=== PATIENT | female | born 1945 | race Caucasian/White ===

== ENCOUNTER 2017-12-12 10:09 | Emergency (ER) | payer MEDICARE, OTHER ==
[~2017-12-12] VITALS: Ht 149.9 cm; Wt 39.4 kg
[~2017-12-12 10:09] MED LIST: ACET80TA PO; AMLO-511 PO; ASPI81 PO; ATOR20TA86 PO; DONE10TA8 PO; ESCI10TA PO; LABE100 PO; MEMA14CA PO; SITA1TAB2 PO; SOLI5 PO
[2017-12-12] MEDS ORDERED: MULT-248 PO (10:29)
[2017-12-12] MEDS ORDERED: LOSA25TA16 PO (10:29)
[2017-12-12] MEDS ORDERED: ASPI81 PO (10:29)
[2017-12-12] MEDS ORDERED: AMLO2.5T3 PO (10:29)
[2017-12-12] MEDS ORDERED: DSS100 PO (10:29)
[2017-12-12] MEDS ORDERED: OXYB5XL PO (10:29)
[2017-12-12 12:01] LABS: BASOPHILS % (AUTO) 0.8 % (0.0-2.0); EOSINOPHILS % (AUTO) 9.5 % (1.0-6.0); HEMATOCRIT 32.4 % (36-46); LYMPHOCYTES # (AUTO) 1.3 K/uL (1.0-4.8); LYMPHOCYTES % (AUTO) 18.8 % (22.0-44.0); MEAN CORPUSCULAR HEMOGLOBIN 29.7 pg (26.0-34.0); MEAN CORPUSCULAR HGB CONC 33.8 G/dL (31.0-37.0); MEAN CORPUSCULAR VOLUME 88 fL (80-100); MONOCYTES # (AUTO) 0.4 K/uL (0.1-1.0); MONOCYTES % (AUTO) 6.3 % (2.0-9.0); NEUTROPHILS # (AUTO) 4.5 K/uL (1.8-7.7); NEUTROPHILS % (AUTO) 64.6 % (40.0-70.0); PLATELET COUNT (AUTO) 327 K/uL (150-450); RED CELL DISTRIBUTION WIDTH 14.3 % (11.5-14.5)
[2017-12-12 12:20] LABS: APPEARANCE,URINE TURBID (CLEAR); BILIRUBIN,URINE NEGATIVE (NEGATIVE); GLUCOSE, URINE (UA) NEGATIVE (NEGATIVE); KETONES,URINE NEGATIVE (NEGATIVE); LEUKOCYTE ESTERASE ,URINE LARGE (NEGATIVE); NITRATE,URINE NEGATIVE (NEGATIVE); OCCULT BLOOD,URINE MODERATE (NEGATIVE); PH,URINE 7.5 (5.0-8.0); PROTEIN,URINE TRACE (NEGATIVE)
[2017-12-12 12:21] LABS: CALCIUM, TOTAL 9.2 mg/dL (8.8-10.5); CREATININE 1.93 mg/dL (0.60-1.30); POTASSIUM 4.1 mmol/L (3.5-5.1)
[2017-12-12 12:25] LABS: ALBUMIN 2.9 g/dL (3.4-5.0); BILIRUBIN,TOTAL 0.4 mg/dL (0.1-1.0); TOTAL PROTEIN, SERUM 6.4 g/dL (6.4-8.2)
[2017-12-12 12:26] LABS: BACTERIA,URINE Many /HPF (None Seen)
[2017-12-12 12:27] LABS: WBC,URINE Full Field /HPF (0-5)
[2017-12-12] MEDS ORDERED: CEPHALEXIN MONOHYDRATE 500 MG CAPSULE PO ONE (13:15)
[2017-12-12 14:13] VITALS: BP 141/82
== END 2017-12-12 14:49 | disposition home or self-care (01) ==
LOC: EMS 10:10
DX: N39.0 Urinary tract infection, site not specified (principal); E11.9 Type 2 diabetes mellitus without complications; I10 Essential (primary) hypertension; Z86.73 Personal history of transient ischemic attack (TIA), and cerebral infarction without residual deficits; Z79.82 Long term (current) use of aspirin
CPT/HCPCS: 72100; 87086; 99285